=== PATIENT | male | born 1985 | race Caucasian/White ===

== ENCOUNTER → 2017-10-08 | Outpatient (CLI) | payer BC ==
[2017-10-08] MEDS: DIATRIZOATE 30% 300 ML (CYSTOGRAFIN) VIAL UR ONE ×2 (10:51→11:03)
--- NOTE | 2017-10-08 12:55 | Diagnostic Imaging Report ---
FLUOROSCOPY TIME: 1 minute 5 seconds. INDICATION: Weak urinary stream and hesitancy. FINDINGS: Cystografin contrast was injected in a retrograde fashion through the penile urethra. Serial fluoroscopic imaging was performed. The penile urethra is widely patent. No stricture or filling defect is seen. Normal typical tapering at the posterior urethra is seen. IMPRESSION: Unremarkable retrograde urethrogram. Dictated by: Dictated on workstation # [id number]
== END ==
LOC: RAD 10:26
PROVIDERS: ATTEND Urology
DX: R39.11 Hesitancy of micturition (principal); R33.9 Retention of urine, unspecified; R39.12 Poor urinary stream
CPT/HCPCS: 74450